=== PATIENT | female | born 1945 | race Caucasian/White ===

== ENCOUNTER 2021-01-24 09:30 | Outpatient (CLI) | payer MEDICARE, OTHER | END 2021-01-24 23:59 | disposition home or self-care (01) | LOC: LAB.S 09:30 | PROVIDERS: ATTEND Physician Assistant Medical | DX: R31.9 Hematuria, unspecified (principal); R30.0 Dysuria | CPT/HCPCS: 87077; 87086; 87181 ==

== ENCOUNTER 2021-04-03 09:20 | Outpatient (CLI) | payer MEDICARE, OTHER | END 2021-04-03 23:59 | disposition home or self-care (01) | LOC: LAB.S 09:20 | PROVIDERS: ATTEND Physician Assistant Medical | DX: R30.0 Dysuria (principal) | CPT/HCPCS: 87077; 87086; 87181 ==

== ENCOUNTER 2021-06-08 09:35 | Outpatient (CLI) | payer MEDICARE, OTHER ==
[2021-06-08 15:11] LABS: BILIRUBIN,URINE NEGATIVE (NEGATIVE); GLUCOSE, URINE (UA) NEGATIVE (NEGATIVE); KETONES,URINE (UA) NEGATIVE (NEGATIVE); LEUKOCYTE ESTERASE, URINE TRACE (NEGATIVE); NITRITE,URINE POSITIVE (NEGATIVE); OCCULT BLOOD,URINE TRACE-INTA (NEGATIVE); PROTEIN,URINE NEGATIVE (NEGATIVE); UROBILINOGEN,URINE 1 (NORMAL) E.U./dL (NORMAL)
[2021-06-08 16:34] LABS: CLARITY,URINE CLEAR (CLEAR)
[2021-06-08 16:45] LABS: BACTERIA,URINE Rare /HPF (None Seen); RBC,URINE 0-5 /HPF (0-5); SQUAMOUS EPITHELIAL CELL,UR NONE SEEN (<= Few)
== END 2021-06-08 23:59 | disposition home or self-care (01) ==
LOC: LAB.S 09:35
PROVIDERS: ATTEND Emergency Medicine
DX: N39.0 Urinary tract infection, site not specified (principal)
CPT/HCPCS: 81001; 87086

== ENCOUNTER 2022-02-06 21:24 | Emergency (ER) | payer MEDICARE, OTHER ==
--- OUTSIDE RECORDS SUMMARY | 2022-02-06 22:19 | EXTERNAL MEDICAL SUMMARY RPT | Continuity of Care Document ---
:1945 Author Organization [facility] Address [address] [place] [address] Phone Allergies No information. Encounters No information. Functional Status No information. Immunizations No information. Medications date description facility [id number] cefuroxime axetil [facility] Jose Luis [id number] cefuroxime axetil [facility] Jose Luis Problems No information. Procedures date description facility [id number] POC URINALYSIS DIP [facility] Results/Labs No information. Social History No information. Vital Signs date measurement value units [id number] BMI BMI 20.19 kg/m2 [id number]+0000 BP_diastolic BP_diastolic 93 mm[H g] 15448671482171+0000 BP_systolic BP_systolic 181 mm[Hg] 60248548562584+0000 heart_rate heart_rate 71 /min 44087969290676+0000 height_metric height_metric 157.48 cm [id number]+0000 height_standard height_standard 62 in [id number]+0000 respiration_rate respiration_rate 15 /min 54227360245879+0000 temperature_metric temperature_metric 36.11 C [id number]+0000 temperature_standard temperature_standard 9 7 F 85984414237241+0000 weight_metric weight_metric 49.9 kg [id number]+0000 weight_standard weight_standard 110 lb
--- NOTE | 2022-02-06 22:48 | ED Physician Documentation ---
PD HPI HEADACHE - Stated complaint Stated Complaint: HEADACHE/VOMITING/DIARREHA - Chief complaint Chief Complaint: General - History obtained from History obtained from: Patient - History of Present Illness Timing - onset: Today Timing - details: Gradual onset Worst headache ever?: No: Worst headache ever? Location: Front, Right, Left Quality: Aching Associated symptoms: Nausea, Vomiting. No: Fever, Stiff neck Improved by: Nothing Worsened by: Other (no exacerbating factors) Similar symptoms before: Has not had sx before - Additional information Additional information: c/o nausea, vomiting, and diarrhea since this morning. Symptoms have steadily been worsening and becoming associated with bifrontal headache. Review of Systems Constitutional: denies: Fever, Chills, Sweats Cardiac: reports: Reviewed and negative Respiratory: reports: Reviewed and negative GI: reports: Nausea, Vomiting, Diarrhea. denies: Abdominal Pain, Abdominal Swelling, Hematemesis, Bloody / black stool : denies: Dysuria, Frequency Neurologic: reports: Headache. denies: Generalized weakness, Focal weakness, Numbness PD PAST MEDICAL HISTORY - Past Medical History Past Medical History: Yes Cardiovascular: Hypertension - Present Medications Home Medications: Ambulatory Orders Medication Instructions Recorded Confirmed Ondansetron Odt [Zofran Odt] 4 mg TL Q6H PRN #10 tablet 02/07/22 - Allergies Allergies/Adverse Reactions: Allergies Allergy/AdvReac Type Severity Reaction Status Date / Time nitrofurantoin Allergy Dizziness Verified 02/06/22 21:38 PD ED PE NORMAL - Vitals Vital signs reviewed: Yes - General General: Alert and oriented X 3, No acute distress, Well developed/nourished - HEENT HEENT: Other (tacky/pasty mucous membranes) - Neck Neck: Supple, no meningeal sign - Cardiac Cardiac: RRR, No murmur - Respiratory Respiratory: No respiratory distress, Clear bilaterally - Derm Derm: Normal color, Warm and dry - Neuro Neuro: Alert and oriented X 3, medical officer psychiatry 2-12 intact, No motor deficit, No sensory deficit, Normal speech Eye Opening: Spontaneous Motor: Obeys Commands Verbal: Oriented GCS Score: 15 Results - Vitals Vitals: Oxygen O2 Source Room air - Labs Labs: Laboratory Tests 02/06/22 02/06/22 23:12 23:12 WBC 4.7 L RBC 4.02 L Hgb 13.3 Hct 38.9 MCV 96.8 MCH 33.1 H MCHC 34.2 RDW 11.9 L Plt Count 134 MPV 10.4 Neut # (Auto) 3.7 Lymph # (Auto) 0.7 L Blount # (Auto) 0.3 Eos # (Auto) 0.0 Baso # (Auto) 0.0 Absolute Nucleated RBC 0.00 Nucleated RBC % 0.0 Sodium 140 Potassium 3.7 Chloride 102 Carbon Dioxide 26 Anion Gap 12.0 BUN 16 Creatinine 0.5 Estimated GFR (MDRD) 120 Glucose 133 H Calcium 9.3 Total Bilirubin 1.1 H AST 26 ALT 30 Alkaline Phosphatase 78 Total Protein 6.8 Albumin 4.2 Globulin 2.6 Albumin/Globulin Ratio 1.6 Lipase 24 PD MEDICAL DECISION MAKING - ED course Complexity details: reviewed results, re-evaluated patient, considered differential, d/w patient ED course: presents with nausea, vomiting, and diarrhea since this morning with bifrontal headache. Unremarkable blood tests (minimal leukopenia noted, WBC 4.7). She is given one liter of normal saline IV, 30mg IV toradol, and IV zofran 4mg and she reports feeling significant improvement with these interventions. she is given a second dose of 4mg IV zofran prior to d/c for some residual nausea. Results d/w patient, return precautions discussed. Departure - Departure Disposition: 01 Home, Self Care Clinical Impression: Vomiting and diarrhea Condition: Good Instructions: ED Diet Vomiting Diarrhea, ED Vomiting Diarrhea Nonspecific Ad Follow-Up: XIAO SELLERS MD [Primary Care Provider] - Prescriptions: Ondansetron Odt [Zofran Odt] 4 mg TL Q6H PRN #10 tablet PRN Reason: Nausea / Vomiting Comments: There are no concerning findings on tonight's blood tests. At this time, further testing is not indicated. If your symptoms worsen, return to the ER. Otherwise, if the symptoms do not resolve in the next 2-3 days, seek follow up with your primary care provider. A prescription for ondansetron (anti-nausea medication) has been electronically submitted to [facility] in [place]. Discharge Date/Time: 02/07/22 01:25
[2022-02-06] MEDS ORDERED: SODIUM CHLORIDE 0.9% 1,000 ML IV STA (23:05)
[2022-02-06] MEDS ORDERED: ONDANSETRON 4 MG/2 ML VIAL IVP STA (23:05)
[2022-02-06 23:33] LABS: BASOPHILS % (AUTO) 0.2 %; EOSINOPHILS % (AUTO) 0.2 %; HCT - HEMATOCRIT 38.9 % (37.0-47.0); HGB - HEMOGLOBIN 13.3 g/dL (12.0-16.0); LYMPHOCYTES # (AUTO) 0.7 10^3/uL (1.5-3.5); LYMPHOCYTES % (AUTO) 15.3 %; MEAN CORPUSCULAR HEMOGLOBIN 33.1 pg (27.0-31.0); MEAN CORPUSCULAR HGB CONC 34.2 g/dL (32.0-36.0); MEAN CORPUSCULAR VOLUME 96.8 fL (81.0-99.0); MEAN PLATELET VOLUME 10.4 fL (7.9-10.8); MONOCYTES # (AUTO) 0.3 10^3/uL (0.0-1.0); MONOCYTES % (AUTO) 6.4 %; NEUTROPHILS # (AUTO) 3.7 10^3/uL (1.5-6.6); NEUTROPHILS % (AUTO) 77.5 %; PLT - PLATELET COUNT 134 10^3/uL (130-450); RED BLOOD COUNT 4.02 10^6/uL (4.20-5.40); RED CELL DISTRIBUTION WIDTH 11.9 % (12.0-15.0); WHITE BLOOD COUNT 4.7 x10^3/uL (4.8-10.8)
[2022-02-06 23:39] LABS: ALBUMIN 4.2 g/dL (3.2-5.5); ALBUMIN/GLOBULIN RATIO 1.6 (1.0-2.2); BILIRUBIN,TOTAL 1.1 mg/dL (0.2-1.0); CALCIUM 9.3 mg/dL (8.5-10.3); CREATININE 0.5 mg/dL (0.4-1.0); POTASSIUM 3.7 mmol/L (3.5-5.0); TOTAL PROTEIN 6.8 g/dL (6.7-8.2)
[2022-02-07] MEDS ORDERED: KETOROLAC 30 MG/ML VIAL IVP STA (00:29)
[2022-02-07] MEDS ORDERED: ONDANSETRON 4 MG/2 ML VIAL IVP STA (01:10)
[2022-02-07 01:16] VITALS: BP 166/92
== END 2022-02-07 01:25 | disposition home or self-care (01) ==
LOC: ED 21:24
DX: R11.2 Nausea with vomiting, unspecified (principal); R19.7 Diarrhea, unspecified; I10 Essential (primary) hypertension
CPT/HCPCS: 36415; 80053; 83690; 85025; 96361; 96374; 96375; 96376; 99283

== ENCOUNTER 2023-02-28 08:00 | Outpatient (CLI) | payer MEDICARE, OTHER | END 2023-02-28 23:59 | disposition home or self-care (01) | LOC: LAB.S 08:00 | PROVIDERS: ATTEND Physician Assistant | DX: R30.0 Dysuria (principal) | CPT/HCPCS: 87086; 87181 ==

== ENCOUNTER 2024-03-10 08:00 | Outpatient (CLI) | payer MEDICARE, OTHER | END 2024-03-10 23:59 | disposition home or self-care (01) | LOC: LAB.N 08:00 | PROVIDERS: ATTEND Registered Nurse | DX: N39.0 Urinary tract infection, site not specified (principal) | CPT/HCPCS: 87077; 87086; 87181 ==